=== PATIENT | female | born 1960 | race Hispanic/Latino ===

== ENCOUNTER 2018-02-04 13:47 | Outpatient (CLI) | payer BC | END 2018-02-04 13:48 | disposition home or self-care (01) | LOC: BICMAMMO 13:47 | PROVIDERS: ATTEND Nurse Practitioner Family | DX: Z12.31 Encounter for screening mammogram for malignant neoplasm of breast (principal); R92.1 Mammographic calcification found on diagnostic imaging of breast | CPT/HCPCS: 77063; 77067 ==

== ENCOUNTER 2018-02-05 14:55 | Outpatient (CLI) | payer BC ==
--- NOTE | 2018-02-05 17:06 | ULT ---
ULTRASOUND WITH DOPPLER DUPLEX VENOUS LOWER EXTREMITY LEFT 02/05/18 CPT: 21043 ICD-10-PCS: B54D HISTORY: Left lower extremity pain. Elevated D-dimer. TECHNIQUE: Color flow Doppler, spectral waveform analysis of pulsed Doppler, and durham-scale imaging with josh micheal and augmentation, were used to evaluate the bilateral common femoral, femoral, popliteal, [place] [place] i[facility] tibial, and superficial femoral, veins; and the proximal portions of the profunda femoral and gre ater saphenous, veins. FINDINGS: There is appropriate compressibility and flow within the imaged deep vein system of the left lower ex tremity without evidence of DVT. IMPRESSION: No DVT of the imaged left lower extremity. POS: [facility]
== END 2018-02-05 14:56 | disposition home or self-care (01) ==
LOC: ULT 14:55
PROVIDERS: ATTEND Physician Assistant
DX: M79.605 Pain in left leg (principal)

== ENCOUNTER 2018-05-30 06:59 | Outpatient (CLI) | payer BC ==
--- NOTE | 2018-05-30 08:02 | ULT ---
ABDOMINAL ULTRASOUND: INDICATION: Abdominal pain. FINDINGS: The patient is status post cholecystectomy. The liver is echogenic consistent with fatty infiltratio n. The pancreas is partially imaged and is unremarkable as visualized. Spleen is unremarkable. Vis ualized aorta and IVC unremarkable. Both kidneys are imaged and appear unremarkable. Images of the subcutaneous tissue left upper quadrant were obtained at the site of the patient's palp able abnormality. Adipose tissue is prominent in this region. There are scattered hyperechoic areas within the adipose tissue which are nonspecific and could represent areas of fat necrosis or focal l ipoma. No fluid or abscess collection. No evidence of hematoma. IMPRESSION: 1. Evidence of hepatic steatosis. 2. Unremarkable abdominal ultrasound. POS: [facility]
== END 2018-05-30 07:00 | disposition home or self-care (01) ==
LOC: SCSULT 06:59
PROVIDERS: ATTEND Nurse Practitioner Family
DX: R19.02 Left upper quadrant abdominal swelling, mass and lump (principal); K76.0 Fatty (change of) liver, not elsewhere classified
CPT/HCPCS: 76700

== ENCOUNTER 2021-07-09 21:09 | Emergency (ER) | payer BC, OTHER ==
[2021-07-09 21:52] LABS: #Basophils 0.1 thou/uL (0.0-0.2); #Lymphocytes 2.1 thou/uL (1.20-3.40); #Monocytes 0.4 thou/uL (0.11-0.59); #Neutrophils 5.3 thou/uL (1.40-6.50); %Basophils 0.6 % (0.0-1.0); %Eosinophils 0.5 % (0.0-10.0); %Lymphocytes 26.8 % (21.0-51.0); %Monocytes 5.6 % (0.0-10.0); %Neutrophils 66.4 % (42.0-75.0); Hemoglobin 13.5 g/dL (12.0-16.0); Mean Corpuscular Hemoglobin 25.1 pg (27.0-31.0); Mean Corpuscular Volume 78.4 fL (78.0-98.0); Mean Platelet Volume 8.9 fL (7.4-10.4); Platelet Count 265 thou/uL (130-400); RBC Distribution Width 13.8 % (11.5-14.5); White Blood Cell (WBC) Count 7.9 thou/uL (4.8-10.8)
[2021-07-09 22:11] LABS: Acetaminophen Less than 10.0 mcg/mL (10.0-30.0); Alcohol 181 mg/dL (Less than 10); Salicylate Less than 8.0 mg/dL (15.0-30.0)
[2021-07-09 22:13] LABS: ALT (SGPT) 36 U/L (8-55); AST (SGOT) 28 U/L (5-34); Albumin 4.4 g/dL (3.5-5.0); Alkaline Phosphatase 152 U/L (40-110); Anion Gap 18 mmol/L (10-20); BUN (Urea Nitrogen) 10 mg/dL (9.8-20.1); Bilirubin, Total 0.3 mg/dL (0.2-1.2); Calc. Creatinine Clearance 0 mL/min (70-130); Calcium 9.6 mg/dL (7.8-10.44); Carbon Dioxide 19 mmol/L (22-29); Chloride 108 mmol/L (98-107); Globulin 4.2 g/dL (2.4-3.5); Glucose 271 mg/dL (70-105); Potassium 3.8 mmol/L (3.5-5.1); Protein, Total 8.6 g/dL (6.0-8.3); Sodium 141 mmol/L (136-145)
[2021-07-09 22:44] LABS: Bacteria/HPF Rare-Few HPF (None Seen); Bilirubin Negative (Negative); Blood, Urine Negative (Negative); Clarity Clear (Clear); Glucose, Urine (Dipstick) Greater than 1000 mg/dL (Negative); Ketone, Urine 10 mg/dL (Negative); Leukocyte 75 Leu/uL (Negative); Nitrite Negative (Negative); Protein, Urine (Dipstick) Negative (Neg-Trace); RBC/HPF 0-3 HPF (0-3); Specific Gravity, Urine 1.011 (1.002-1.036); Squamous Epithelial 0-3 HPF (0-3); Urobilinogen Normal mg/dL (Less than 2); pH, Urine 5.5 (5.0-9.0)
[2021-07-09 22:51] LABS: Amphetamine Not Detected (NotDetected); Barbiturates Screen Not Detected (NotDetected); Benzodiazepine Screen Not Detected (NotDetected); Cocaine Metabolite Screen Not Detected (NotDetected); Methadone Not Detected (NotDetected); Methamphetamine Not Detected (NotDetected); Opiate Screen Detected (NotDetected); Oxycodone Screen Not Detected (NotDetected); Phencyclidine (PCP) Not Detected (NotDetected); THC/Cannabinoid Screen Not Detected (NotDetected); Tricyclic Screen Not Detected (NotDetected)
[2021-07-10] MEDS ORDERED: Ibuprofen 200 MG TAB ONE (02:05)
[2021-07-10] MEDS ORDERED: Acetaminophen 325 MG TAB ONE (02:05)
[2021-07-10] MEDS ORDERED: Ondansetron ODT 4 MG TAB ONE (05:43)
[2021-07-10] MEDS ORDERED: Amlodipine 5 MG TAB ONE (09:55)
[2021-07-10] MEDS ORDERED: Lisinopril 20 MG TAB PO SCH (10:15)
[2021-07-10] MEDS ORDERED: Amlodipine 5 MG TAB PO SCH (10:15)
[2021-07-10] MEDS ORDERED: Hydrochlorothiazide 25 MG TAB PO SCH (10:15)
[2021-07-10 10:16] LABS: #Basophils 0.1 thou/uL (0.0-0.2); #Eosinphils 0.1 thou/uL (0.0-0.7); #Lymphocytes 2.1 thou/uL (1.20-3.40); #Monocytes 0.6 thou/uL (0.11-0.59); #Neutrophils 8.6 thou/uL (1.40-6.50); %Basophils 0.9 % (0.0-1.0); %Eosinophils 0.6 % (0.0-10.0); %Monocytes 5.6 % (0.0-10.0); Hemoglobin 14.1 g/dL (12.0-16.0); Mean Corpuscular HGB CONC 30.1 g/dL (32.0-36.0); Mean Corpuscular Hemoglobin 24.1 pg (27.0-31.0); Mean Platelet Volume 9.2 fL (7.4-10.4); Platelet Count 294 thou/uL (130-400); Red Blood Cell (RBC) Count 5.83 mill/uL (4.20-5.40); White Blood Cell (WBC) Count 11.5 thou/uL (4.8-10.8)
[2021-07-10] MEDS ORDERED: metroNIDAZOLE 500 MG in Premix Bag 1 BAG IVPB SCH (10:30)
[2021-07-10] MEDS ORDERED: Ondansetron PF 4 MG/2 ML Vial ONE (12:14)
[2021-07-10] MEDS ORDERED: Pantoprazole 40 MG VIAL ONE (12:14)
[2021-07-10] MEDS ORDERED: Iopamidol-370 76% 500 ML 1 ML ONE (14:37)
== END 2021-07-10 13:35 | disposition home or self-care (01) ==
LOC: ERS 21:09
DX: F43.20 Adjustment disorder, unspecified (principal); R45.851 Suicidal ideations; E11.9 Type 2 diabetes mellitus without complications; E78.5 Hyperlipidemia, unspecified; E78.00 Pure hypercholesterolemia, unspecified; I10 Essential (primary) hypertension; Z79.84 Long term (current) use of oral hypoglycemic drugs; Z79.899 Other long term (current) drug therapy
CPT/HCPCS: 36415; 74177; 80053; 80306; 80307; 81003; 81015; 83690; 84443; 85025; 93005; 96365; 96368; 96375; C9113; J0744; J2405; Q0162; Q9967

== ENCOUNTER 2022-11-10 14:41 | Outpatient (CLI) | payer OTHER | END 2022-11-10 14:42 | disposition home or self-care (01) | LOC: BICMAMMO 14:41 | PROVIDERS: ATTEND Family Medicine | DX: Z12.31 Encounter for screening mammogram for malignant neoplasm of breast (principal) | CPT/HCPCS: 77063; 77067 ==

== ENCOUNTER 2023-07-25 14:14 | Emergency (ER) | payer OTHER | END 2023-07-25 17:30 | disposition home or self-care (01) | LOC: ERS 14:14 | DX: N39.0 Urinary tract infection, site not specified (principal); I10 Essential (primary) hypertension; E11.9 Type 2 diabetes mellitus without complications; E78.00 Pure hypercholesterolemia, unspecified; Z79.84 Long term (current) use of oral hypoglycemic drugs; Z79.899 Other long term (current) drug therapy | CPT/HCPCS: 36415; 36416; 71045; 80053; 81001; 82010; 83690; 83735; 83880; 84484; 85025; 87086; 96365; J0696; J3490 ==

== ENCOUNTER 2025-01-29 13:29 | Outpatient (CLI) | payer OTHER | END 2025-01-29 13:30 | disposition home or self-care (01) | LOC: BICMAMMO 13:29 | PROVIDERS: ATTEND Family Medicine | DX: Z12.31 Encounter for screening mammogram for malignant neoplasm of breast (principal) | CPT/HCPCS: 77063; 77067 ==